=== PATIENT | female | born 1990 | race Two or more races ===

== ENCOUNTER 2018-01-26 19:32 | Emergency (ER) | payer OTHER ==
[~2018-01-26] VITALS: Ht 152.4 cm; Wt 55.8 kg
[2018-01-26] MEDS ORDERED: Ketorolac 30mg Inj IM ONE (20:30)
--- NOTE | 2018-01-26 20:36 | Emergency Room Report ---
History of Present Illness General Chief Complaint: Lower Back Pain or Injury Source: Patient Present Illness HPI 27-year-old female presents to the emergency department complaining of 10 out of 10 in severity acute onset pain in the low back which has begun to radiate up towards the thoracic area. Patient localizes her pain in the paraspinal musculature. Denies midline spinal pain. 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 She reports pain is exacerbated upon certain movements such as bending a certain way or sitting a certain way. Patient states the injury occurred 10 days ago she's been taking extra strength Tylenol with no relief of her symptoms. Patient denies trauma or fall she denies previous injury in this area she denies sciatica or saddle anesthesia. Patient denies recent spinal procedures or history of cancer. Allergies: Coded Allergies: No Known Allergies (Unverified , 01/26/18) Patient History Past Medical History: see triage record Past Surgical History: none Pertinent Family History: none Last Menstrual Period: 01/20/2018 Now: No : 3 Para: 3 Reviewed Nursing Documentation: PMH: Agreed; PSxH: Agreed Nursing Documentation-PMH Past Medical History: No Stated History Review of Systems All Other Systems: negative except mentioned in HPI Physical Exam Vital Signs Date Time Temp Pulse Resp B/P (MAP) Pulse Ox O2 Delivery O2 Flow Rate FiO2 01/26/18 19:48 97.8 79 14 97 Room Air 97.9 Sp02 EP Interpretation: reviewed, normal General Appearance: alert, GCS 15, non-toxic, mild distress Head: normocephalic, atraumatic ENT: hearing grossly normal, normal voice Neck: full range of motion Respiratory: lungs clear, normal breath sounds, speaking full sentences Cardiovascular #1: regular rate, rhythm Genitourinary: normal inspection, no CVA tenderness Musculoskeletal: back normal, gait/station normal, normal range of motion, tender - TTP paraspinal musculature of the lumbar and thoracic area, no midline spinous process ttp or obvious step-off. pain greater in the thoractic paraspinal area than lumbar. Neurologic: alert, oriented x3, responsive, motor strength/tone normal, sensory intact, normal gait, speech normal, grossly normal Psychiatric: judgement/insight normal Skin: normal color, no rash, warm/dry, well hydrated Medical Decision Making PA Attestation Dr. Bennett is my supervising Physician whom patient management has been discussed with. Diagnostic Impression: Primary Impression: Lumbosacral strain Qualified Codes: S39.012A - Strain of muscle, fascia and tendon of lower back , initial encounter ER Course 27-year-old female presents to the emergency department complaining of 10 out of 10 in severity acute onset pain in the low back which has begun to radiate up towards the thoracic area. Patient localizes her pain in the paraspinal musculature. Denies midline spinal pain. 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 She reports pain is exacerbated upon certain movements such as bending a certain way or sitting a certain way. Patient states the injury occurred 10 days ago she's been taking extra strength Tylenol with no relief of her symptoms. Patient denies trauma or fall she denies previous injury in this area she denies sciatica or saddle anesthesia. Patient denies recent spinal procedures or history of cancer. Ddx considered but are not limited to Fracture, dislocation, contusion, Sprain/ Strain/Spasm, Epidural abscess, Neoplastic mets. Vital signs: are WNL, pt. is afebrile H&PE are most consistent with muscular strain in the lumbosacral region, no evidence to suggest acute spinal fractures or emergent spinal chord injury at this time. ORDERS: - X-ray 's not warranted at this time as the patient is bony tenderness/ spinous process pain and there was no history of trauma ED INTERVENTIONS: - Toradol 20mg IM -Soma PO -Lidoderm TP. -Pt. is stable for close outpatient follow up with PMD for re-evaluation after conservative treatment. D/w pt. that if symptoms worsen or new symptoms occur to return to the ED. DISCHARGE: At this time pt. is stable for d/c to home. Will provide printed patient care instructions, and any necessary prescriptions. Care plan and follow up instructions have been discussed with the patient prior to discharge. Last Vital Signs Date Time Temp Pulse Resp B/P (MAP) Pulse Ox O2 Delivery O2 Flow Rate FiO2 01/26/18 19:48 97.8 79 14 97 Room Air 97.9 Disposition: HOME, SELF-CARE Condition: Stable Scripts Methocarbamol* (ROBAXIN*) 500 Mg Tablet 1000 MG PO TID, #42 TAB 0 Refills Prov: Fadumo Denis 01/26/18 Ibuprofen* (MOTRIN*) 600 Mg Tablet 600 MG ORAL THREE TIMES A DAY, #30 TAB 0 Refills Prov: Fadumo Denis 01/26/18 Lidocaine (Lidoderm) 1 Each Adh..patch 1 PATCH TOPIC DAILY, #30 PATCH 0 Refills Patch(es) may remain in place for up to 12 hours in any 24-hour period. 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 Return to Full Activity: Feb 03, 2018 Patient Instructions: Lumbosacral Strain, Muscle Cramps and Spasms, Easy-to- Read Additional Instructions: Take medications as directed. Follow up with a Primary Care Provider in 3-5 days, even if your symptoms have resolved. --Please review list of primary care clinics, if you do not already have a primary care provider Return sooner to ED if new symptoms occur, or current symptoms become worse. Do not drink alcohol, drive, or operate heavy machinery while taking Robaxin ( Muscle Relaxers) as this may cause drowsiness. - Please note that this Emergency Department Report was dictated using [employer] powder grinder technology software, occasionally this can lead to erroneous entry secondary to interpretation by the dictation equipment. Fadumo Denis Jan 26, 2018 20:36
[2018-01-26] MEDS ORDERED: ROBAXIN500 MG PO (20:37)
[2018-01-26] MEDS ORDERED: IBUPROFEN600 MG ORAL (20:37)
[2018-01-26] MEDS ORDERED: LIDODERM700 M1 TOPIC (20:37)
[2018-01-26 21:25] VITALS: BP 115/75
== END 2018-01-26 21:00 | disposition home or self-care (01) ==
LOC: EMR 20:52
DX: S39.012A Strain of muscle, fascia and tendon of lower back, initial encounter (principal); X50.0XXA Overexertion from strenuous movement or load, initial encounter; X50.9XXA Other and unspecified overexertion or strenuous movements or postures, initial encounter; Y93.F2 Activity, caregiving, lifting; Y92.239 Unspecified place in hospital as the place of occurrence of the external cause; Y99.0 Civilian activity done for income or pay
CPT/HCPCS: 96372; 99283; J1885